=== PATIENT | female | born 1950 | race Two or more races ===

== ENCOUNTER 2017-02-15 08:58 | Day surgery (SDC) | payer OTHER ==
[2017-02-10 12:19] VITALS: BMI 28.1
[2017-02-15] MEDS ORDERED: oxyCODONE HCL 5 MG TABLET PO PRN ×2 (09:04)
[2017-02-15] MEDS ORDERED: ONDANSETRON 4 MG/2 ML VIAL IVPUSH PRN (09:04)
[2017-02-15] MEDS ORDERED: ACETAMINOPHEN 325 MG TABLET (FP) PO PRN (09:04)
[2017-02-15] MEDS ORDERED: LACTATED RINGERS SOLUTION 1,000 ML IV SCH (09:15)
[2017-02-15] MEDS ORDERED: LIDOCAINE HCL 2% (20ML MULTI-DOSE VIAL) NR ONE (09:30)
[2017-02-15] MEDS ORDERED: MIDAZOLAM HCL 2 MG/2 ML SINGLE DOSE VIAL ONE (09:30)
[2017-02-15 11:52] VITALS: BP 126/71; PULSE 74; TEMP 98
--- NOTE | 2017-02-17 11:05 | OP ---
DATE OF OPERATION: 02/15/2017 PREOPERATIVE DIAGNOSIS: 1. Right carpal tunnel syndrome. 2. Right long trigger-finger. POSTOPERATIVE DIAGNOSIS: 1. Right carpal tunnel syndrome. 2. Right long trigger-finger. OPERATIVE PROCEDURE: 1. Right carpal tunnel release. 2. Right long trigger-finger release. SURGEON: David Robert MD ANESTHESIA: Local with sedation. COMPLICATIONS: None. ESTIMATED BLOOD LOSS: Minimal. INDICATIONS FOR PROCEDURE: The patient is a female with the above findings, indicated for operative treatment. Of note, she had initially just been scheduled for right carpal tunnel release. However, in the preoperative area, the patient was noted on examination to have a right long trigger-finger. I discussed with her and her family the options including observation, cortisone injection, and surgery, and she desired to proceed with surgical release at the same time as the carpal tunnel release. The risks, benefits, and alternatives of both procedures were again discussed with the patient, and proper informed consent was obtained. PROCEDURE: After proper identification of the patient and the correct operative site, the patient was brought to the operating room and placed supine on the operating table. All bony prominences were well padded. Esmarch bandage was used to exsanguinate the right upper extremity. Tourniquet was inflated to 250 mmHg. Longitudinal incision was made at the proximal aspect of the palm. Incision was taken sharply through the skin with blunt and sharp dissection through subcutaneous tissues. The palmar fascia was divided longitudinally. The transverse carpal ligament was divided longitudinally along with distal 4 cm of antebrachial fascia under direct visualization with loupe magnification. This provided complete release of the median nerve at the wrist. Wound was irrigated and repaired with a 5-0 nylon suture. A second incision was made over the A1 dianna to the long finger. Incision was taken sharply through the skin with blunt and sharp dissection through subcutaneous tissues. A1 dianna was identified and divided, and the patient was asked to flex and extend her finger, and no further triggering was noted. Wound was irrigated with saline and repaired with a 5-0 nylon suture. Sterile dressings were applied. Patient was reversed from anesthesia and brought to the recovery room in stable condition. She tolerated the procedure well. Yaima [id number]
== END 2017-02-15 12:05 | disposition home or self-care (01) ==
LOC: FASU 08:58
PROVIDERS: ATTEND Orthopaedic Surgery Hand Surgery
PROC: 0LN70ZZ Release Right Hand Tendon, Open Approach (ICD-10-PCS; 2017-02-15)
PROC: 01N50ZZ Release Median Nerve, Open Approach (ICD-10-PCS; principal; 2017-02-15 10:36)
DX: G56.01 Carpal tunnel syndrome, right upper limb (principal); M65.331 Trigger finger, right middle finger

== ENCOUNTER 2019-03-13 07:22 | Day surgery (SDC) | payer OTHER ==
[2019-03-07 11:20] VITALS: BMI 27.7
[2019-03-13] MEDS ORDERED: MIDAZOLAM HCL 2 MG/2 ML SINGLE DOSE VIAL ONE (09:47)
[2019-03-13] MEDS ORDERED: PROPOFOL 20 ML ONE (09:52)
[2019-03-13] MEDS ORDERED: LIDOCAINE HCL 2% (50ML VIAL) INF ONE (10:07)
[2019-03-13 11:22] VITALS: BP 147/80; PULSE 72; TEMP 97.9
[2019-03-13] MEDS ORDERED: ONDANSETRON 4 MG/2 ML VIAL IVPUSH PRN (15:20)
[2019-03-13] MEDS ORDERED: oxyCODONE HCL 5 MG TABLET PO PRN (15:20)
[2019-03-13] MEDS ORDERED: ACETAMINOPHEN 325 MG TABLET (FP) PO PRN (15:20)
[2019-03-13] MEDS ORDERED: LACTATED RINGERS SOLUTION 1,000 ML IV SCH (15:30)
--- NOTE | 2019-03-14 18:24 | OP ---
DATE OF OPERATION: 03/13/2019 PREOPERATIVE DIAGNOSIS: Left carpal tunnel syndrome. POSTOPERATIVE DIAGNOSIS: Left carpal tunnel syndrome. OPERATIVE PROCEDURE: Left carpal tunnel release. ANESTHESIA: Local with sedation. COMPLICATIONS: None. ESTIMATED BLOOD LOSS: Minimal. INDICATION FOR PROCEDURE: The patient is a 68-year-old female with the above finding indicated for operative treatment. Risks, benefits, and alternatives were discussed with patient at length, and proper informed consent was obtained. PROCEDURE: After proper identification of the patient and correct operative site, patient was brought to the operating room and placed supine on the operating table, all bony prominences well padded. Sedation and local anesthesia were given. Left upper extremity was prepped and draped in the usual sterile fashion. Well-padded tourniquet was placed with a sterile prep. Esmarch bandage to exsanguinate the left upper extremity. Tourniquet was placed to 250 mmHg. Longitudinal incision was made in the proximal aspect of the palm. Incision was taken sharply through the skin with blunt and sharp dissection through subcutaneous tissues. The palmar fascia was divided longitudinally. The transcarpal ligament divided longitudinally along with the distal 4 cm of the antebrachial fascia was under direct visualization with loupe magnification. This provided complete release of the median nerve at the wrist. Wound was irrigated and repaired with 5-0 plain gut. Sterile dressing was applied. The patient was brought to the recovery room in stable condition. She tolerated the procedure well. RADHA MCGARRY M.D. [id number]
== END 2019-03-13 11:22 | disposition home or self-care (01) ==
LOC: FASU 07:22
PROVIDERS: ATTEND Orthopaedic Surgery Hand Surgery
PROC: 01N50ZZ Release Median Nerve, Open Approach (ICD-10-PCS; principal; 2019-03-13 10:07)
DX: G56.02 Carpal tunnel syndrome, left upper limb (principal)
CPT/HCPCS: 82962